=== PATIENT | female | born 1980 | race Hispanic/Latino ===

== ENCOUNTER 2019-09-07 13:44 | Outpatient (CLI) | payer OTHER ==
--- NOTE | 2019-09-07 15:24 | MMO ---
Bilateral MAMMO Bilat Screen [facility]. CLINICAL HISTORY: Patient is 39 years old and is seen for screening. The patient has no family history of breast cancer. The patient has no personal history of cancer. VIEWS: The views performed were: bilateral craniocaudal; bilateral craniocaudal with tomosynthesis; bilateral mediolateral oblique; bilateral mediolateral oblique with tomosynthesis; bilateral exaggerated craniocaudal implant displaced; and bilateral Implant displaced with tomosynthesis. This study has been interpreted with the assistance of computer-aided detection. MAMMOGRAM FINDINGS: The breasts are heterogeneously dense, which could obscure a lesion on mammography. There are no suspicious masses, suspicious calcifications, or new areas of architectural distortion. IMPRESSION: THERE IS NO MAMMOGRAPHIC EVIDENCE OF MALIGNANCY. A ROUTINE FOLLOW-UP MAMMOGRAM IN 1 YEAR IS RECOMMENDED. THE RESULTS OF THIS EXAM WERE SENT TO THE PATIENT. ACR BI-RADS Category 1 - Negative MAMMOGRAPHY NOTE: 1. A negative mammogram report should not delay a biopsy if a dominant of clinically suspicious mass is present. 2. Approximately 10% to 15% of breast cancers are not detected by mammography. 3. Adenosis and dense breasts may obscure an underlying neoplasm. Reported by: Radha BA Electonically Signed: [id number]
== END 2019-09-07 13:45 | disposition home or self-care (01) ==
LOC: BICMAMMO 13:44
PROVIDERS: ATTEND Family Medicine
DX: Z12.31 Encounter for screening mammogram for malignant neoplasm of breast (principal)
CPT/HCPCS: 77063; 77067

== ENCOUNTER 2022-11-21 15:44 | Emergency (ER) | payer OTHER ==
[2022-11-21] MEDS ORDERED: Bacitracin 1 PK ONE (16:23)
[2022-11-21] MEDS ORDERED: Boostrix 0.5 ML (Tdap) VIAL (>/=7 yrs of age) ONE (16:24)
== END 2022-11-21 16:40 | disposition home or self-care (01) ==
LOC: ERS 15:44
DX: S61.210A Laceration without foreign body of right index finger without damage to nail, initial encounter (principal); E03.9 Hypothyroidism, unspecified; Z23 Encounter for immunization
CPT/HCPCS: 90471; 90715

== ENCOUNTER 2023-06-21 21:06 | Emergency (ER) | payer OTHER ==
[2023-06-21] MEDS ORDERED: Ketorolac Tromethamine 30 MG/ML VIAL ONE (22:05)
== END 2023-06-21 22:13 | disposition home or self-care (01) ==
LOC: ERS 21:06
DX: R29.898 Other symptoms and signs involving the musculoskeletal system (principal); E03.9 Hypothyroidism, unspecified
CPT/HCPCS: 96372; 99283; J1885